=== PATIENT | male | born 1935 | race Caucasian/White ===

== ENCOUNTER 2017-01-29 08:50 | Day surgery (SDC) | payer MEDICARE, OTHER ==
--- NOTE | 2017-01-26 09:51 | HP ---
PATIENT: CAMILLE MORALES MEDICAL RECORD: [id number] ACCOUNT: [id number] LOCATION:[facility] : 35 ADMISSION DATE: 01/29/17 HISTORY AND PHYSICAL EXAMINATION Preoperative History and Physical HISTORY OF PRESENT ILLNESS: Mr. Valentin has had problems with chronic allergic fungal sinusitis. He had surgery about 1 year ago, the right frontal sinus had bony erosion it is obstructed again and the bony erosion is still present and causes some bulging. He is being admitted for right frontal sinusotomy as well as bilateral middle meatal antrostomies to rinse those out. PAST MEDICAL HISTORY: Includes reflux, prostate cancer. PAST SURGICAL HISTORY: Includes knee replacement, prostatectomy in 1998, sinus surgery in years ago, but also sinus surgery last year. CURRENT MEDICATIONS: Include ____ as well as blood pressure medications he cannot remember the name of. PHYSICAL EXAMINATION: GENERAL: He is in a wheelchair. EYES: Sclerae and conjunctivae are normal. He does have a little bit of ptosis or some bulging of his right medial brow there. EARS: Canals and TMs are normal. 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 NECK: Normal. NEUROLOGIC: Cranial nerves: Normal. IMPRESSION: Chronic allergic fungal sinusitis. PLAN: Bilateral middle meatal antrostomies. He is getting a right frontal sinusotomy with external approach as well to completely debride that right frontal sinus. TRANSINT:[id number] Voice Confirmation ID: [id number] DOCUMENT ID: [id number] NAHUN CARDENAS MD at 0951 CC: [id number] DICTATION DATE: 01/25/17 1532 POT FILLER: 01/25/17 1837 [facility] [address] [place] [address]
[~2017-01-29] VITALS: Ht 188 cm; Wt 140.6 kg
[~2017-01-29 08:50] MED LIST: ALEVE220 MG PO; BAYER CHEWABLE81 MG PO; COUMADIN5 MG PO; LIPITOR20 MG PO; MOBIC7.5 MG PO; PREDNISONE5 MG PO; TOPROL XL25 MG PO; ZYTIGA PO
[2017-01-29 10:34] LABS: BASOPHILS 0.1 % (0.0-2.0); HEMATOCRIT 45.1 % (42.0-54.0); HEMOGLOBIN 14.3 g/dL (13.5-17.5); IMMATURE GRANULOCYTES 0.1 % (0-5); LYMPHOCYTES 29.7 % (15-50); MCH 31.3 pg (26.0-34.0); MCHC 31.7 g/dL (31.0-37.0); MCV 98.7 fL (80.0-100.0); MEAN PLATELET VOLUME 11.4 fL (7.4-10.4); MONOCYTES 9.1 % (2-11); PLATELET COUNT 194 10x3/uL (130-400); RBC 4.57 10x6/uL (4.20-6.10); RDW 13.9 % (11.5-14.5); WBC 6.8 10x3/uL (4.8-10.8)
[2017-01-29 10:44] LABS: APTT 22.8 SECONDS (22.8-39.4); INR 0.98 (0.85-1.17); PROTIME 12.8 SECONDS (11.6-15.0)
[2017-01-29 10:55] LABS: CALC OSMOLALITY 291 mosm/kg (275-300); CALCIUM 8.6 mg/dL (8.5-10.1); CARBON DIOXIDE 32.9 mmol/L (21.0-32.0); CHLORIDE - SERUM 106 mmol/L (98-107); CREATININE - SERUM 0.8 mg/dL (0.6-1.3); GLUCOSE 109 mg/dL (74-106); POTASSIUM - SERUM 3.8 mmol/L (3.5-5.1); SODIUM 145 mmol/L (136-145); UREA NITROGEN 17 mg/dL (7-18); eGFR NON AFRICAN AMERICAN > 90 mL/min (90-120)
[2017-01-29 11:02] VITALS: BP 148/88; Ht 188 cm; Wt 140.6 kg
--- NOTE | 2017-01-29 18:25 | NUR ---
1645--IV DC'D, PT UP TO DRESS AT THIS TIME. FERNANDO COLON 3690--DISCHARGE INSTRUCTIONS GIVEN, PT VERBALIZES UNDERSTANDING. PT OFF UNIT VIA WC. FERNANDO COLON
[2017-01-31 11:19] LABS: FUNGUS STAIN Final report (())
--- NOTE | 2017-02-01 10:08 | OP ---
PATIENT NAME: CAMILLE MORALES MEDICAL RECORD: [id number] :35 LOCATION:[facility] ADMISSION DATE: SURGEON: NAHUN CONNORS MD DATE OF OPERATION: 01/29/2017 PREOPERATIVE DIAGNOSIS: Chronic sinusitis. POSTOPERATIVE DIAGNOSIS: Chronic sinusitis. PROCEDURE: Right frontal sinusotomy with combined external approach and bilateral middle meatal antrostomies. SURGEON: Nahun Connors MD. ANESTHESIA: General orotracheal. BLOOD LOSS: Less than 5 cc. PACKING: None. COMPLICATIONS: None. DISPOSITION: Recovery stable. FINDINGS: There was some drainage from both maxillary sinuses, a little bit from the anterior ethmoid on the right side, but the right frontal sinus, I was able to get a curved olive tip suction and then easily irrigated repeatedly, but it was clear. The external trephination opened that up and there was actually this thick hard brown material that broke up, kind of like rotten wood, not typical soft fungal sinusitis material, but looked most likely something like that was not as yellow as actinomycosis granules were normally are. All that was sent for path and cultures as well. DESCRIPTION OF PROCEDURE: He was brought to the operating room, placed in supine position, sedated and intubated by anesthesia. The table was turned 90 degrees. He had already been decongested with Afrin preoperatively. The nose was examined. ____ the middle turbinate were injected bilaterally with a total of 1.5 cc of 1% lidocaine with 1:100,000 epinephrine and Afrin pledgets were placed bilaterally, then he was positioned, prepped and draped for nasal surgery. The right medial brow was injected with less than 0.5 cc of 1% lidocaine with 1:100,000 epinephrine and prepped and draped with Betadine. The nose was examined, left side first, all the Afrin pledgets were removed. The uncinate was fractured anteriorly, a large olive tip suction was inserted into the maxillary sinus. Backbiter was used to make sure that opening was wide enough, it was irrigated and cleaned. The right side was done in the same way, uncinate was fractured anteriorly, a microdebrider was used to take down some of the redundant swollen tissue. The anterior ethmoid on the right side was entered a little and taken down as well and the ethmoid bulla. There was purulent drainage from the frontal sinus duct. The maxillary sinus was again irrigated and clear. There was just a thin drainage everywhere, but for the most part not any significant solid material on the maxillary sinuses. Then, with a long curved olive tip suction, I was easily enter with a frontal sinus. Before I did that, I got cultures of some of the purulent drainage from the area then entered the sinus. I was able to easily get up into the frontal sinus, all the way without any trouble, irrigated it, just clear saline returned. There OPERATIVE REPORT [id number] MORALESCAMILLE D was really no significant bleeding in the nose. I left the olive tip suction and a frontal sinus. An incision was made underneath the right medial brow. A bone curette was used to take down and free the bone underneath that medial brow and created a trephination into that frontal sinus. Once the sinus was opened, the tip of the olive tip suction was easily visible. Most of that sinus was aerated, but looking closely, there was this thick brown material on the anterior surface of that frontal sinus and with a curette, we just peeled that off and it broke up almost, it was light brown in color and almost looked like rotten wood, but once we started scraping away, it broke up and I was able to irrigate, get a lot of pieces out, then I used a Olivia trap to suction out the sinus externally and got a lot of little piece of this material. I was able to irrigate the sinus both from inside the nose and externally from the medial brow and just repeatedly back and forth with 60 cc syringes with saline and rinsed the sinus out repeatedly until it looked clean and also with some mechanical debridement as well. There really was not much bleeding. The incision was closed with interrupted subcutaneous 5-0 Vicryl and the skin was closed with 5-0 Prolene. The nose was then examined. The olive tip suction was removed. The maxillary sinuses were irrigated again with saline. The nose was irrigated and nasopharynx was suctioned, everything was clean and dry. No significant bleeding. He was awakened, extubated and transported to recovery in good condition. No complications. TRANSINT:[id number] Voice Confirmation ID: [id number] DOCUMENT ID: [id number] NAHUN CONNORS MD at 1008 CC: [id number] DICTATION DATE: 01/29/17 1441 [employer] SCHO[employer] MUSIC TEACHER: 01/29/17 2357 [facility] 01/29/17 [facility] [address] [place] [id number]
[2017-02-26 07:09] LABS: FUNGUS MYCOLOGY CULTURE Final report (())
== END 2017-01-29 17:15 | disposition home or self-care (01) ==
LOC: D.OPS 08:50 → D.PAN 09:45 → D.OPS 11:15 → D.PAN 11:15 → D.OPS 17:15
PROVIDERS: Anesthesiology; Otolaryngology
DX: J32.1 Chronic frontal sinusitis (principal); K21.9 Gastro-esophageal reflux disease without esophagitis; Z85.46 Personal history of malignant neoplasm of prostate; Z79.899 Other long term (current) drug therapy

== ENCOUNTER 2017-05-01 16:57 | Inpatient (IN) | payer MEDICARE, OTHER ==
[~2017-05-01] VITALS: Ht 188 cm; Wt 136.1 kg
--- NOTE | ~2017-05-01 | EC ---
PATIENT:CAMILLE MORALES DATE OF SERVICE: 05/01/17 SEX: M MEDICAL RECORD: [id number] DATE OF : 35 LOCATION:D. D.211 AGE OF PATIENT: 81 ADMISSION DATE: 05/01/17 REFERRING PHYSICIAN: INTERPRETING PHYSICIAN: MUSHTAQ LANG M.D. ECHOCARDIOGRAM REPORT ECHO CHARGES 4 ECHO COMPLETE CLINICAL DIAGNOSIS: CHF ECHOCARDIOGRAPHIC MEASUREMENTS (adult normal given) AC root (d.<3.7cm) 3.8 LV Septum d (<1.2 cm> 1.7 Valve Excursion 1.2 LV Septum (systole) 1.9 Left Atria (s.<4.0cm> 4.2 LVPW d(<1.2cm) 1.6 RV (d.<2.3cm) 5.1 LVPW (sytole) 1.7 LV diastole(<5.6CM) 4.1 MV E-F(>70mm/sec) LV systole 2.9 LVOT Diameter 1.1 MV exc.(>10mm) 2.3 Est.ejection fraction (50-75%) Pericardial Effusion N DOPPLER: LVIT A 108 E 46.0 LA RVSP 43 LVOT 105 AOP1/2T Asc. Ao 216 RVOT RA PA AV Gradient Peak 18.75 AV Mean 9.45 AV Area MV Gradient Peak 11.00 MV Mean 3.37 MV Area COMMENTS: Lance Crewmember/Mlrs Sergeant: Tom CARCAMO Custom Car Builder:Tom Lang TAPE# PACS DATE OF SERVICE: 05/02/2017 REFERRING PHYSICIAN: Reinier Gifford MD. INDICATION: Congestive heart failure. DESCRIPTION: Left ventricle demonstrates left ventricular hypertrophy. No wall motion abnormalities are seen. Estimated ejection fraction is 55%. Mitral valve demonstrates mild regurgitation. Left atrium is mildly dilated. The aortic valve is trileaflet. Peak gradient across the valve is 18 mmHg. ECHOCARDIOGRAM REPORT [id number] CAMILLE MORALES Leaflets are thickened. Right ventricle is mildly dilated. Tricuspid valve is normal. There is mild regurgitation seen. Right ventricular systolic pressure is measured at 43 mmHg. There is no pericardial effusion seen. IMPRESSION: 1. Left ventricular hypertrophy with preserved ejection fraction of 55%. 2. Mild mitral regurgitation. 3. Mild aortic stenosis. 4. Mild tricuspid regurgitation. TRANSINT:[id number] Voice Confirmation ID: [id number] DOCUMENT ID: [id number] MUSHTAQ LANG M.D. CC: [id number] DICTATION DATE: 05/03/17 1029 DIET THERAPIST: 05/03/17 1702 ADM IN [place] [id number] [place] [id number]
[~2017-05-01 16:57] MED LIST changes: -ZYTIGA PO; +ZYTIGA250 MG PO
--- NOTE | 2017-05-01 17:16 | NUR ---
TRANSFER FROM ADMISSIONS BY W/C. OREINTED TO ROOM. CALL LIGHT IN REACH. WILL CONT. PLAN OF CARE.
[2017-05-01 18:17] VITALS: BP 115/48; BMI 38.6
[2017-05-01 18:43] LABS: CKMB 0.8 U/L (0.0-3.6); CREATINE KINASE 70 UL (21-232); TROPONIN-I 0.021 ng/mL (0.000-0.060)
--- NOTE | 2017-05-01 19:30 | NUR ---
RECEIVED PT IN BED AAOX 4 RESP UNLABORED DENIES ANY NEEDS AT THIS TIME DOPPLER STUDY IN PROGRESS AT THIS TIME NAD NOTED
[2017-05-01 20:20] VITALS: BP 110/50
[2017-05-01 23:52] VITALS: BP 93/54
[2017-05-02 01:08] LABS: APPEARANCE CLEAR (CLEAR); BILIRUBIN NEGATIVE (NEGATIVE); COLOR DK YELLOW (YELLOW); GLUCOSE NEGATIVE (NEGATIVE); KETONE NEGATIVE (NEGATIVE); LEUKOCYTE ESTERASE TRACE (NEGATIVE); NITRITE NEGATIVE (NEGATIVE); PROTEIN NEGATIVE (NEGATIVE); SPECIFIC GRAVITY 1.015 (1.005-1.020); UROBILINOGEN NORMAL (NORMAL)
[2017-05-02 01:09] LABS: BACTERIA FEW /hpf (NONE SEEN); EPITHELIAL CELLS 0-5 /hpf (0-5); HYALINE CAST 0-5 /lpf (NONE SEEN); RED CELLS - URINE 0-5 /hpf (0-5); WHITE CELLS - URINE 0-5 /hpf (0-5)
[2017-05-02 03:53] VITALS: BP 109/47
[2017-05-02 05:35] LABS: HEMATOCRIT 37.6 % (42.0-54.0); HEMOGLOBIN 12.3 g/dL (13.5-17.5); MCH 30.7 pg (26.0-34.0); MCHC 32.7 g/dL (31.0-37.0); MCV 93.8 fL (80.0-100.0); MEAN PLATELET VOLUME 10.7 fL (7.4-10.4); RBC 4.01 10x6/uL (4.20-6.10); RDW 14.1 % (11.5-14.5); WBC 7.8 10x3/uL (4.8-10.8)
[2017-05-02 05:36] LABS: PLATELET COUNT 277 10x3/uL (130-400)
[2017-05-02 05:47] LABS: CALC OSMOLALITY 274 mosm/kg (275-300); CALCIUM 8.3 mg/dL (8.5-10.1); CHLORIDE - SERUM 99 mmol/L (98-107); CREATININE - SERUM 0.8 mg/dL (0.6-1.3); GLUCOSE 111 mg/dL (74-106); PRO BNP 768 pg/mL (0-450); SODIUM 138 mmol/L (136-145); UREA NITROGEN 8 mg/dL (7-18); eGFR NON AFRICAN AMERICAN > 90 mL/min (90-120)
[2017-05-02 05:50] LABS: POTASSIUM - SERUM 2.3 mmol/L (3.5-5.1)
[2017-05-02 05:57] LABS: EOSINOPHILS 30 % (0-7); LYMPHOCYTES 32 % (15-50); MONOCYTES 5 % (2-11); NEUTROPHILS 33 % (40-80); PLATELET ESTIMATE NORMAL
--- NOTE | 2017-05-02 06:37 | NUR ---
CRITICAL LAB OF K+ IS 2.3. DR. OAKLEY WHO IS INSPECTOR GLASS OR MIRROR PAGE.
--- NOTE | 2017-05-02 07:34 | NUR ---
AM ROUNDING DONE WITH JACQUELINE REQUESTING ASSIST TO BSC TO HAVE A BM. WITH MYSELF AND NORA COLON, ASSISTED TO BSC. BILATREAL LOWER LEGS AND FEET RED AND SWOLLEN. IV CONVERTED TO SALINE LOCK TO RIGHT AC WHILE GETTING HIM TO BSC. ON O2 AT 2L PER NC. K+ IS 2.3, WILL START EP ORDERED. BILATERAL KNEES ARE SWOLLEN ALSO, PATIENT STATES THAT HE HAS HAD NUMEROUS SURGERIS IN THE PAST WITH THEM. BED ALARM IS SET
[2017-05-02 08:41] VITALS: BP 106/51
--- NOTE | 2017-05-02 11:55 | NUR ---
Wound Care Consult: Bilateral lower extremities are edematous and red. No weeping noted at this point. Pt is able to get oob to bathroom and is doing so frequently d/t administration of diuretic. Encouraged pt to keep his legs elevated. Will continue to monitor.
[2017-05-02 12:46] VITALS: BP 126/51
[2017-05-02 13:37] VITALS: Ht 188 cm; Wt 136.1 kg
[2017-05-02 16:53] VITALS: BP 113/55
[2017-05-02 20:00] VITALS: BP 114/57
--- NOTE | 2017-05-02 20:00 | NUR ---
PT IN BED WITH HOB UP FOR COMFORT. ALERT & ORIENTED. 02 @ 2L VIA N/C. TWO PERSON ASSIST TO BSC. RIGHT AC NS @ 125ML/HR. BED IN LOWEST POSITION AND CALL LIGHT WITHIN REACH.
--- NOTE | 2017-05-02 23:25 | NUR ---
PT RESTING IN BED. ALERT/ORIENTED. IVF INFUSING. ADMINISTERED IV BUMEX 1MG SIVP TO RFA IV. CALL LIGHT IN REACH. NO OTHER NEEDS AT THIS TIME.
[2017-05-03] VITALS: BP 111/54
--- NOTE | 2017-05-03 | NUR ---
PT IN BED WITH HOB UP FOR COMFORT. RESTING QUIETLY. CHEST RISING AND FALLING. BED IN LOWEST POSITION AND CALL LIGHT WITHIN REACH.
--- NOTE | 2017-05-03 03:41 | NUR ---
SURFACE PLATE FINISHER AT BEDSIDE TO OBTAIN VITALS, CALL LIGHT IN REACH. WILL CONTINUE WITH PLAN OF CARE.
[2017-05-03 05:11] LABS: BASOPHILS 0.2 % (0-2); EOSINOPHILS 44.4 % (0-7); HEMATOCRIT 39.8 % (42.0-54.0); HEMOGLOBIN 12.8 g/dL (13.5-17.5); IMMATURE GRANULOCYTES 0.5 % (0-5); LYMPHOCYTES 24.4 % (15-50); MCH 30.9 pg (26.0-34.0); MCHC 32.2 g/dL (31.0-37.0); MEAN PLATELET VOLUME 10.7 fL (7.4-10.4); MONOCYTES 9.6 % (2-11); NEUTROPHILS 20.9 % (40-80); PLATELET COUNT 317 10x3/uL (130-400); RBC 4.14 10x6/uL (4.20-6.10); RDW 14.4 % (11.5-14.5); WBC 8.7 10x3/uL (4.8-10.8)
[2017-05-03 05:13] LABS: MCV 96.1 fL (80.0-100.0)
[2017-05-03 05:24] LABS: CALC OSMOLALITY 283 mosm/kg (275-300); CALCIUM 8.1 mg/dL (8.5-10.1); CHLORIDE - SERUM 102 mmol/L (98-107); CREATININE - SERUM 0.8 mg/dL (0.6-1.3); GLUCOSE 110 mg/dL (74-106); MAGNESIUM - SERUM 1.4 mg/dL (1.8-2.4); SODIUM 143 mmol/L (136-145); UREA NITROGEN 8 mg/dL (7-18); eGFR NON AFRICAN AMERICAN > 90 mL/min (90-120)
[2017-05-03 05:47] LABS: POTASSIUM - SERUM 2.7 mmol/L (3.5-5.1)
--- NOTE | 2017-05-03 07:09 | HP ---
PATIENT: CAMILEL MORALES MEDICAL RECORD: [id number] ACCOUNT: [id number] LOCATION:[address] : 35 ADMISSION DATE: 05/01/17 HISTORY AND PHYSICAL EXAMINATION DATE OF ADMISSION: 05/01/2017. CHIEF COMPLAINT: Shortness of breath, weakness, bilateral leg swelling for the past 2 weeks. HISTORY OF PRESENT ILLNESS: The patient is an 81-year-old gentleman, who has basically been wheelchair bound for the last couple of years and history of having ____ . He has also had dependent edema. He reports that for the past couple of weeks, he has had increasing shortness of breath with lightheadedness. He has also noted to have low blood pressure. PAST MEDICAL HISTORY: Significant, he has had history of anemia in the past. He has also had atrial fibrillation. He has had congestive heart failure, hypertension, knee replacements, dependent edema. FAMILY HISTORY: Mother had cervical cancer. Father of lung disease. MEDICATIONS: Amitiza 24 mcg once a day, aspirin 81 mg 1 p.o. every day, atorvastatin 20 mg 1 p.o. q.h.s., Lasix 40 mg p.o. b.i.d., Metformin 500 mg 1 p.o. every day, Metoprolol succinate ER 25 mg once a day, Naprosyn 500 mg 2 tabs p.o. every day, Xand 40 mg daily. ALLERGIES: No known drug allergies. SOCIAL HISTORY: The patient was born in [place], [place]. He has been . He is 2 years college educated. 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 HABITS: The patient has been a smoker in the past. REVIEW OF SYSTEMS: CONSTITUTIONAL: He denies any headaches. He does report syncopal episodes. GASTROINTESTINAL: No chronic nausea, vomiting, melena or hematochezia. GENITOURINARY: No urgency, frequency or dysuria. CARDIOVASCULAR: No chest pain, palpitation, PND or orthopnea. GASTROINTESTINAL: No chronic nausea, vomiting, melena or hematochezia. RESPIRATORY: He has reported increased shortness of breath, although he does report pain in the wrist, hands and knee. PHYSICAL EXAMINATION: GENERAL: The patient is wheelchair-bound. VITAL SIGNS: Blood pressure is 78/44, pulse 84, his respirations 20, temperature 97.6, respirations 20. HEENT: Unremarkable. NECK: Supple. There is no adenopathy. HEART: Has a regular rhythm. No murmurs, gallops or rub. LUNGS: He has decreased breath sounds in the bases. ABDOMEN: Soft, bowel sounds positive. EXTREMITIES: He has 2+ pretibial edema. He also has erythema of both lower extremities. HISTORY AND PHYSICAL [id number] CAMILLE MORALES LABORATORY DATA: The patient did have sodium today of 133, his potassium was low at 2.1, chloride is 96, CO2 was 32. His glucose is 110. BUN is 7, creatinine 0.72. The patient's white count is 8.2, hemoglobin was 13, hematocrit 39.8 and his platelets are 192. ASSESSMENT: Hypotension, dependent edema, cellulitis, history of prostate cancer with metastatic disease, diabetes mellitus, ____ fibrillation. PLAN: The patient will be admitted. He will be given IV hydration, also will have blood cultures times 2, be placed on Rocephin 1 gram q. [address] him on 2200 calorie ADA diet. We will get venous Doppler of lower extremity. Recheck labs in the a.m. TRANSINT:[id number] Voice Confirmation ID: [id number] DOCUMENT ID: [id number] ARGELIA RAMÍREZ MD at 0709 CC: [id number] DICTATION DATE: 05/01/171729 INVESTOR RELATIONS DIRECTOR: 05/01/172208 ADM IN [place] [id number] [place] [address]
--- NOTE | 2017-05-03 07:22 | NUR ---
AM ROUNDING DONE WTIH PATIENT APPEARING TO BE ASLEEP AT THIS TIME. RESP ARE EVEN AND NON LABORED. ON 2L PER NC. NS INFUSING TO RIGHT AC AT 125CC/HR. K+ THIS AM IS 2.7, DR PELLETIER HERE TO SEE PATIENT. WILL MONITOR.
[2017-05-03 08:16] VITALS: BP 139/56
--- NOTE | 2017-05-03 08:29 | NUR ---
ASSSIT TO BSC TO VOID, WANTS TO EAT BREAKFAST WHILE SITTING O IT. BILATERAL LOWER LEGS ARE RED AND WITH PITTING EDEMA ALONG WITH BILATRAL FEET.
[2017-05-03 11:42] VITALS: BP 126/53
--- NOTE | 2017-05-03 14:56 | NUR ---
SALINE LOCK IV ORDERED.
[2017-05-03 16:10] VITALS: BP 128/61
--- NOTE | 2017-05-03 18:00 | NUR ---
EDEMA IS NOT GETTING ANY BETTER THIS SHIFT EVEN WITH FLUID RESTRICTION. BACK OF LEGS AND FLANK AREA ARE PINK AND WITH 3+ EDEMA.
--- NOTE | 2017-05-03 19:25 | NUR ---
ALERT/AWAKE ORIENTED X 4. C/O HEADACHE PAIN LEVEL 6 ON NUMBER SCALE 0-10, DESCRIBED THROBBING. ON 02 AT 2L/NC, RR 20 EVEN U/L. IV IN R AC INTACT SL. HAS CALL LIGHT AND BEDSIDE TABLE WITH PERSONAL ITEMS IN REACH.
[2017-05-03 20:00] VITALS: BP 113/40
--- NOTE | 2017-05-03 23:26 | NUR ---
AWAKE WATCHING TV. REQUESTED MORE ICE WATER.
--- NOTE | 2017-05-04 02:05 | NUR ---
ASSISTED TO BSC. STATED TO NEED TO HAVE BM. EXCRETED VERY SMALL STOOL. ASSISTED BACK TO BED. LEGS ARE VERY SWOLLEN AND RED, NEEDING ASSISTANCE TO LIFT THEM.
[2017-05-04 04:00] VITALS: BP 111/51
[2017-05-04 04:49] LABS: BASOPHILS 0.3 % (0-2); HEMATOCRIT 38.7 % (42.0-54.0); HEMOGLOBIN 12.3 g/dL (13.5-17.5); IMMATURE GRANULOCYTES 0.4 % (0-5); LYMPHOCYTES 22.3 % (15-50); MCH 30.5 pg (26.0-34.0); MCHC 31.8 g/dL (31.0-37.0); MEAN PLATELET VOLUME 10.5 fL (7.4-10.4); MONOCYTES 7.5 % (2-11); NEUTROPHILS 22.5 % (40-80); PLATELET COUNT 314 10x3/uL (130-400); RBC 4.03 10x6/uL (4.20-6.10); RDW 14.2 % (11.5-14.5); WBC 9.5 10x3/uL (4.8-10.8)
[2017-05-04 05:06] LABS: CALC OSMOLALITY 278 mosm/kg (275-300); CALCIUM 8.1 mg/dL (8.5-10.1); CHLORIDE - SERUM 102 mmol/L (98-107); CREATININE - SERUM 0.7 mg/dL (0.6-1.3); GLUCOSE 108 mg/dL (74-106); MAGNESIUM - SERUM 1.3 mg/dL (1.8-2.4); SODIUM 141 mmol/L (136-145); UREA NITROGEN 5 mg/dL (7-18); eGFR NON AFRICAN AMERICAN > 90 mL/min (90-120)
[2017-05-04 05:07] LABS: POTASSIUM - SERUM 2.9 mmol/L (3.5-5.1)
--- NOTE | 2017-05-04 06:20 | NUR ---
RETURNING TO BED FROM BR. CHECKED BS AT 140. ADMIN SCHED MED. NO NEEDS VOICED.
--- NOTE | 2017-05-04 07:36 | NUR ---
AM ROUNDING DONE WITH PATIENT ON BSC AT PRESENT TIME. SALINE LOCK SEEN TO RIGHT AC. ON 2L PER NC. ON EP WITH LOW K+ THIS, SUPPLEMENT HAS BEEN GIVEN ON LAST SHIFT. BILATERAL LOWER LEGS AND FEET ARE 3-4+ EDEMA, PINKNESS IS GOING UP BACK OF LEGS INTO FLANK AREA. ON FLUID RESTRICTION. DR OAKLEY HERE TO SEE PATIENT AND TO POSSIBLE ADJUST MEDS. WILL MONITOR.
[2017-05-04 08:00] VITALS: BP 101/56
--- NOTE | 2017-05-04 08:46 | NUR ---
STATES THAT SHE GAVE THE PATIENT 2 ADVIL WITHOUT OUR KNOWLEDGE. GREGORIO CATH PLACED WITHOUT PROBLEMS.
--- NOTE | 2017-05-04 10:57 | NUR ---
Nutrition follow-up: Diet: ADA consistent CHO PO intake ~75% average of last 6 meals Labs reviewed Wt: 300# +BM RDN following.
[2017-05-04 12:00] VITALS: BP 112/55
--- NOTE | 2017-05-04 12:03 | NUR ---
1158-K+ IS 2.8. LIQUID POTASSIUM MIXED WITH 60 CC OF OJ GIVEN TO PATIENT. THE OTHER HALF OF OJ ON TRAY FOR LUNCH.
--- NOTE | 2017-05-04 13:50 | NUR ---
2ND DOSE OF ORAL POTASSIUM GIVEN WITH TOTAL OF 120 CC OJ.
[2017-05-04 16:00] VITALS: BP 111/55
--- NOTE | 2017-05-04 16:11 | NUR ---
3RD DOSE OF ORAL POTASSIUM GIVEN WITH 120 OJ. WILL ORDER RE-DRAW OF POTASSIUM PER PROTOCOL.
--- NOTE | 2017-05-04 17:24 | NUR ---
ASSISTED X 2 OFF BSC, MEDIUM BM.
[2017-05-04 20:00] VITALS: BP 95/48
--- NOTE | 2017-05-04 22:10 | NUR ---
PT REST QUIETLY IN BED WITH EYE CLOSE, BED LOW, CALL LIGHT WITHIN REACH.
--- NOTE | 2017-05-05 03:52 | NUR ---
ASSISTED PT WITH BEDSIDE COMMODE.
[2017-05-05 04:00] VITALS: BP 105/45
[2017-05-05 05:02] LABS: BASOPHILS 0.3 % (0-2); EOSINOPHILS 47.4 % (0-7); HEMOGLOBIN 12.2 g/dL (13.5-17.5); IMMATURE GRANULOCYTES 0.2 % (0-5); MCHC 32.1 g/dL (31.0-37.0); MCV 96.4 fL (80.0-100.0); MEAN PLATELET VOLUME 10.6 fL (7.4-10.4); MONOCYTES 9.2 % (2-11); NEUTROPHILS 21.9 % (40-80); PLATELET COUNT 310 10x3/uL (130-400); RBC 3.94 10x6/uL (4.20-6.10); RDW 14.3 % (11.5-14.5); WBC 9.8 10x3/uL (4.8-10.8)
[2017-05-05 05:13] LABS: ALBUMIN 2.5 g/dL (3.4-5.0); ALKALINE PHOSPHATASE 50 U/L (46-116); ALT (SGPT) 17 U/L (10-68); CALC OSMOLALITY 283 mosm/kg (275-300); CALCIUM 8.6 mg/dL (8.5-10.1); CARBON DIOXIDE 33.1 mmol/L (21.0-32.0); CHLORIDE - SERUM 105 mmol/L (98-107); CREATININE - SERUM 0.8 mg/dL (0.6-1.3); GLUCOSE 109 mg/dL (74-106); POTASSIUM - SERUM 3.3 mmol/L (3.5-5.1); PROTEIN - SERUM 5.6 g/dL (6.4-8.2); SODIUM 143 mmol/L (136-145); UREA NITROGEN 6 mg/dL (7-18); eGFR NON AFRICAN AMERICAN > 90 mL/min (90-120)
--- NOTE | 2017-05-05 06:05 | NUR ---
PT LYING IN BED, IN NO ACUTE DISTRESS. DENIES ANY NEEDS AT THIS TIME. CONTINUE TO MONITOR CLOSELY.
[2017-05-05 08:00] VITALS: BP 94/40
--- NOTE | 2017-05-05 08:42 | NUR ---
AWAKE AND ALERT. ORIENTED X3. NO C/O AT THIS TIME. LUNGS ARE CLEAR BILATERALLY, NO COUGH NOTED. SKIN IS INTACT WITHOUT REDNESS. 2-3 PLUS EDEMA NOTED TO BILATERAL LOWER EXTREMETIES. GREGORIO PATENT WITH CLEAR YELLOW URINE. SL TO RIGHT AC PATENT WITHOUT REDNESS AT INSERTION SITE. FAMILY AT BEDSIDE. DENIES NEEDS
--- NOTE | 2017-05-05 10:00 | NUR ---
UP TO BSC WITH ONE PERSON ASSIST. NO C/O AT THIS TIME. DENIES NEEDS.
[2017-05-05 12:00] VITALS: BP 114/55
--- NOTE | 2017-05-05 12:15 | NUR ---
REQUESTED AND GIVEN 650MG TYLENOL PO FOR C/O HEADACHE LEVEL 8. WILL MONITOR.
--- NOTE | 2017-05-05 14:20 | NUR ---
REPORTS HEADACHE IMPROVED AT THIS TIME.
[2017-05-05 16:00] VITALS: BP 116/51
--- NOTE | 2017-05-05 17:45 | NUR ---
ATE ALL OF SUPPER. NO C/O VOICED. DENIES NEEDS. NO CHANGES NOTED.
--- NOTE | 2017-05-05 18:30 | NUR ---
SPOKE WITH DR. CELE GAMEZ FLUID RESTRICTION. NEW ORDERS RECEIVED.
[2017-05-05 20:00] VITALS: BP 104/50
--- NOTE | 2017-05-05 20:00 | NUR ---
REC'D IN BED AWAKE AND ALERT. RESP EVEN AND UNLABORED WITH NO DISTRESS NOTED. CAN EXPRESS NEEDS AND WANTS. NO C/O PAIN OR DISCOMFORT AT THIS TIME. ASSESSMENT COMPLETED. C/L IN REACH AT BEDSIDE.
[2017-05-06] VITALS: BP 105/61
--- NOTE | 2017-05-06 01:12 | NUR ---
C/O SHOULDER AND BACK PAIN RATING 7/10 ON PAIN SCALE WAS MEDICATED WITH APAP 650 MG PER ORDERS. C/L IN REACH AT BEDSIDE.
[2017-05-06 04:00] VITALS: BP 103/58
--- NOTE | 2017-05-06 04:16 | NUR ---
RESTING WITH NO DISTRESS. CPOC.
[2017-05-06 05:22] LABS: BASOPHILS 0.5 % (0-2); EOSINOPHILS 50.9 % (0-7); HEMATOCRIT 38.1 % (42.0-54.0); HEMOGLOBIN 12.1 g/dL (13.5-17.5); IMMATURE GRANULOCYTES 0.2 % (0-5); LYMPHOCYTES 21.8 % (15-50); MCH 30.7 pg (26.0-34.0); MCHC 31.8 g/dL (31.0-37.0); MCV 96.7 fL (80.0-100.0); MEAN PLATELET VOLUME 10.3 fL (7.4-10.4); MONOCYTES 8.5 % (2-11); NEUTROPHILS 18.1 % (40-80); PLATELET COUNT 321 10x3/uL (130-400); RBC 3.94 10x6/uL (4.20-6.10); RDW 14.6 % (11.5-14.5); WBC 10.7 10x3/uL (4.8-10.8)
[2017-05-06 05:30] LABS: ALBUMIN 2.5 g/dL (3.4-5.0); ANION GAP 8.6 mmol/L (8-16); BILIRUBIN - TOTAL 0.6 mg/dL (0.2-1.3); CALCIUM 8.6 mg/dL (8.5-10.1); CARBON DIOXIDE 34.6 mmol/L (21.0-32.0); POTASSIUM - SERUM 3.2 mmol/L (3.5-5.1); PROTEIN - SERUM 5.8 g/dL (6.4-8.2)
[2017-05-06 05:34] LABS: CREATININE - SERUM 1.2 mg/dL (0.6-1.3)
[2017-05-06 08:00] VITALS: BP 108/53
--- NOTE | 2017-05-06 18:32 | NUR ---
ALERT AND ORIENTED X4. ASSIST BACK TO BED FROM BEDSIDE. COMMODE. FLUID INTAKE FOR 12HRS IS 690. NO CHANGE. DENIES ANY NEEDS. CONTINUE SAFETY PRECAUTIONS. AND PLAN OF CARE.
--- NOTE | 2017-05-06 19:43 | NUR ---
RESUMED CARE OF PT, LYING IN BED RESPIRAITONS EVEN AND UNLABORED ON 2LPM VIA MARY ANN. DARLINE TO GRAVITY, CALL LIGHT IN REACH. BOX ALARM ON. NO NEEDS VOICED AT THIS TIME. WILL CONTINUE TO MONITOR. SEE NURSE ASSESSMENT.
[2017-05-06 21:33] VITALS: BP 105/50
--- NOTE | 2017-05-07 02:21 | NUR ---
LYING IN BED WITH EYES CLOSED, RESPIRATIONS EVEN AND UNLABORED. CALL LIGHT IN REACH. WILL CONTINUE TO MONITOR.
[2017-05-07 05:04] LABS: BASOPHILS 0.4 % (0-2); EOSINOPHILS 51.1 % (0-7); HEMATOCRIT 38.1 % (42.0-54.0); IMMATURE GRANULOCYTES 0.3 % (0-5); LYMPHOCYTES 21.8 % (15-50); MCH 30.5 pg (26.0-34.0); MCHC 31.5 g/dL (31.0-37.0); MCV 96.7 fL (80.0-100.0); MEAN PLATELET VOLUME 10.4 fL (7.4-10.4); MONOCYTES 8.2 % (2-11); NEUTROPHILS 18.2 % (40-80); PLATELET COUNT 309 10x3/uL (130-400); RBC 3.94 10x6/uL (4.20-6.10); RDW 14.4 % (11.5-14.5); WBC 10.5 10x3/uL (4.8-10.8)
[2017-05-07 05:28] LABS: ALBUMIN 2.5 g/dL (3.4-5.0); ANION GAP 10.3 mmol/L (8-16); BILIRUBIN - TOTAL 0.54 mg/dL (0.2-1.3); CALCIUM 8.5 mg/dL (8.5-10.1); CARBON DIOXIDE 33.2 mmol/L (21.0-32.0); CREATININE - SERUM 1.2 mg/dL (0.6-1.3); POTASSIUM - SERUM 3.5 mmol/L (3.5-5.1); PROTEIN - SERUM 5.2 g/dL (6.4-8.2)
[2017-05-07 06:37] VITALS: BP 110/45
[2017-05-07] MEDS ORDERED: BUMEX 1 MG TAB1 MG PO (06:39)
[2017-05-07] MEDS ORDERED: K-TAB10 MEQ PO (06:39)
[2017-05-07] MEDS ORDERED: GLUCOPHAGE500 MG PO (06:39)
[2017-05-07 08:00] VITALS: BP 93/48
--- NOTE | 2017-05-07 08:30 | NUR ---
SPOKE WITH FORREST AT THE [facility] [phone]. SHE SAID TO HAVE REPORT CALLED TO HER, AND THEY WILL CALL BACK WITH A TIME THE [facility] COULD PICK HIM UP IF NEEDED. PER NATHAN VANEGAS, PATIENT STATED HIS DAUGHTER WILL DRIVE HIM. WILL RELAY THIS WHEN THE NURSE CALLS REPORT OR THE FACILITY CALLS BACK.
--- NOTE | 2017-05-07 09:36 | NUR ---
Patient Name: CAMILLE MORALES Encounter No: [id number] : 1935 Primary Insurance: MEDICARE A & B Anticipated DC Date: 05-07-2017 Planned Disposition: Home External Planned Provider: [facility] DCP follow-up note: * Is the patient Alert and Oriented? Yes 0 * How many steps to enter\exit or inside your home? NONE 0 * PCP DR. RAMÍREZ 0 * Pharmacy [facility] MAIL ORDER 0 * Preadmission Environment Home Alone 0 * ADLs Independent 0 * Equipment Other Walker 0 * Other Equipment ELECTRIC WHEELCHAIR SCOOTER 0 * List name and contact numbers for known caregivers / representatives who currently or will assist patient after discharge: ANDRIA MORALES, DTR, 0 * Community resources currently utilized None 0 * Please name any agencies selected above. NONE 0 * Additional services required to return to the preadmission environment? No 0 * Can the patient safely return to the preadmission environment? Yes 0 * Has this patient been hospitalized within the prior 30 days at any hospital? No 0 CM MET WITH PT IN ROOM TO DISCUSS DISCHARGE PLANNING AND NEEDS. PT REPORTS LIVING AT THE [facility] INDEP[facility]ENT LIVING IN HIS APARTMENT, ALONE AND INDEPENDENTLY. PT REPORTS HIS DAUGHTER COMES OVER EACH MORNING TO CHECK ON HIM. PT HAS WALKER HE USES TO GET INTO THE BATHROOM, ELECTRIC WHEELCHAIR AND SCOOTER WITH NO MEDICAL EQUIPMENT PROVIDER PREFERENCE. PT HAS AVAILABILITY OF MEAL SERVICES AT THE [facility]. PT REPORTS HE HAS HANDICAPPED VAN OF HIS OWN AND HIS DAUGHTER WILL PICK HIM UP THIS MORNING FOR DISCHARGE HOME TODAY. CM DISCUSSED AVAILABILITY OF HOME HEALTH, REHAB SERVICES AND MEDICAL EQUIPMENT. PT DENIES DISCHARGE NEEDS, IMPORTANT MESSAGE FROM MEDICARE PROVIDED AND EXPLAINED. Jose Alejandro Villafuerte, CASE MANAGEMENT
--- NOTE | 2017-05-07 11:52 | NUR ---
ALERT AND ORIENTED X4. RESTING IN BED. FAMILY AT BEDSIDE. LEFT MESSAGE AT THE [facility] NOTIFYING OF DISCHARGE. DC GREGORIO BULB INTACT. DC RT AC IV TIP INTACT. DISCHARGE INSTRUCTIONS. GIVEN VERBALLY AND WRITTEN. DISCHARGE PAPERS SIGNED ON CHART. ASSIST TO HOME WHEELCHAIR. ESCORT TO RIDE. REMAINS FREE FROM INJURY.
== END 2017-05-07 12:59 | disposition home or self-care (01) | DRG 603 ==
LOC: D.M2 16:57
PROVIDERS: Family Medicine; ADMIT Family Medicine
PROC: 0T9B70Z Drainage of Bladder with Drainage Device, Via Natural or Artificial Opening (ICD-10-PCS; principal; 2017-05-04)
DX: L03.116 Cellulitis of left lower limb (principal); I95.9 Hypotension, unspecified; I48.91 Unspecified atrial fibrillation; I11.0 Hypertensive heart disease with heart failure; I50.9 Heart failure, unspecified; E11.9 Type 2 diabetes mellitus without complications; E87.6 Hypokalemia

== ENCOUNTER 2018-02-18 10:14 | Day surgery (SDC) | payer MEDICARE, OTHER ==
[~2018-02-18] VITALS: Ht 188 cm; Wt 113.6 kg
--- NOTE | ~2018-02-18 | OP ---
PATIENT NAME: CAMILLE MORALES MEDICAL RECORD: [id number] :35 LOCATION:D.OPS ADMISSION DATE: SURGEON: KASSY RASHEED DO DATE OF OPERATION: 02/18/2018 PROCEDURE: Colonoscopy with polypectomy. INDICATIONS FOR PROCEDURE: Constipation and positive stool guaiac. SCOPE: Olympus video pediatric colonoscope. MEDICATIONS: Propofol 250 mg IV per anesthesia. WITHDRAWAL TIME: 13 minutes. ESTIMATED BLOOD LOSS: Minimal. COMPLICATIONS: None. FINDINGS: Informed consent was given. The patient was made comfortable with the above medication. After reaching an adequate level of sedation by slow IV push, the patient was placed on his left side. A digital rectal examination was performed and was normal. The endoscope was then advanced under direct visualization through the rectum to the cecum with visualization of appendiceal orifice and ileocecal valve. The scope was slowly withdrawn and mucosa was carefully examined. The prep quality was good. There was a single benign-appearing sessile polyp located in the cecum that measured approximately 3 mm in diameter. It was removed using hot forceps in one piece and completely retrieved. There was evidence of mild diverticulosis involving the sigmoid colon without evidence of diverticulitis. Retroflexion was performed in the rectum with visualization of grade I internal hemorrhoids without stigmata of bleeding. The endoscope was then withdrawn from the patient. The patient tolerated the procedure well and there were no complications. IMPRESSION: 1. Single benign-appearing sessile cecal polyp, removed using hot forceps. 2. Mild diverticulosis of the sigmoid colon. 3. Internal hemorrhoids grade I. PLAN AND RECOMMENDATIONS: 1. Discharge home when recovery parameters are met. 2. High-fiber diet. 3. Continue current medications including jmpx-imw-oovasze supplements to assist with more regular bowel movements. 4. If aslg-hew-wylciej products become ineffective, can consider another trial of Amitiza, Linzess, or Trulance. 5. No further colonoscopies are necessary based on the patient's age unless symptoms warrant evaluation. TRANSINT:[id number] Voice Confirmation ID: [id number] DOCUMENT ID: [id number] OPERATIVE REPORT [id number] CAMILLE MORALES KASSY RASHEED DO at 1132 CC: [id number] DICTATION DATE: 02/18/18 1306 VALIDATION SOFTWARE FACILITATOR: 02/18/18 1418 DEP SDC 02/18/18 [facility] [address] [place] [address]
[~2018-02-18 10:14] MED LIST changes: +BUMEX 1 MG TAB1 MG PO; +GLUCOPHAGE500 MG PO; +K-TAB10 MEQ PO
[2018-02-18 10:37] LABS: HEMATOCRIT 40.7 % (42.0-54.0); HEMOGLOBIN 13.8 g/dL (13.5-17.5); MCH 32.2 pg (26.0-34.0); MCHC 33.9 g/dL (31.0-37.0); MCV 95.1 fL (80.0-100.0); MEAN PLATELET VOLUME 10.7 fL (7.4-10.4); RBC 4.28 10x6/uL (4.20-6.10); RDW 13.9 % (11.5-14.5); WBC 6.8 10x3/uL (4.8-10.8)
[2018-02-18] MEDS ORDERED: XTANDI (10:45)
[2018-02-18 10:50] VITALS: BP 142/71; Ht 188 cm; Wt 113.6 kg
[2018-02-18 10:56] LABS: CALC OSMOLALITY 287 mosm/kg (275-300); CALCIUM 9.3 mg/dL (8.5-10.1); CARBON DIOXIDE 28.9 mmol/L (21.0-32.0); CHLORIDE - SERUM 104 mmol/L (98-107); CREATININE - SERUM 0.8 mg/dL (0.6-1.3); GLUCOSE 101 mg/dL (74-106); SODIUM 144 mmol/L (136-145); UREA NITROGEN 14 mg/dL (7-18); eGFR NON AFRICAN AMERICAN > 90 mL/min (90-120)
== END 2018-02-18 13:55 | disposition home or self-care (01) ==
LOC: D.OPS 10:14
PROVIDERS: Anesthesiology
DX: R19.5 Other fecal abnormalities (principal); D12.0 Benign neoplasm of cecum; K64.8 Other hemorrhoids; Z01.812 Encounter for preprocedural laboratory examination

== ENCOUNTER → 2018-04-02 08:26 | Outpatient (CLI) | payer MEDICARE, OTHER ==
[2018-02-18 10:50] VITALS: BMI 32.1
[~2018-04-02 08:26] MED LIST changes: +XTANDI
== END | disposition home or self-care (01) ==
LOC: D.NM 08:26
DX: C61 Malignant neoplasm of prostate (principal)